=== PATIENT | female | born 1945 | race American Indian/Alaskan Native ===

== ENCOUNTER 2019-12-21 01:20 | Emergency (ER) | payer MEDICARE ==
--- NOTE | 2019-12-21 03:55 | XRay Report ---
CHEST PA AND LATERAL VIEWS INDICATION: cough. COMPARISON: None. FINDINGS: Support devices: None. Heart: Within normal limits. Lungs/Pleura: There are low lung volumes which accentuates pulmonary interstitium. No consolidation, effusion, or pneumothorax. IMPRESSION: 1. Mild diffuse interstitial markings may be due at least in part due to low lung volumes. No consoli dation is seen. It would be difficult to exclude lower airways disease. Signer Name: Real Rosenberg MD Signed: 12/21/2019 3:50 AM Workstation Name: [id number]
[2019-12-21] MEDS ORDERED: ACETAMINOPHEN 325 MG TAB PO ONE (04:05)
[2019-12-21] MEDS ORDERED: ACETAMINOPHEN 325 MG TAB ONE (04:06)
--- NOTE | 2019-12-21 06:38 | Emergency Department Report ---
ED General Adult HPI - General Chief complaint: Upper Respiratory Infection Stated complaint: COUGH Time Seen by Provider: 12/21/19 06:22 Source: patient, EMS Mode of arrival: Ambulatory Limitations: No Limitations - History of Present Illness Initial comments: This is a 74-year-old lady who is quite irate on my encounter. She states she has been here all night and "nothing has been done". She states that she was brought here against her will by EMS because "my numbers were too high". She has had a chest x-ray performed during the evening but no laboratory database. The patient tells me that she has been coughing and "it makes my chest sore". She does not complain of any independent chest pain. She states that she has difficulty in breathing. She states that she has been prescribed oxygen at home in the past but does not state that she is using it currently. She has a history of COPD. She was recently prescribed prednisone. She states she has been on "a lot of antibiotics". She denies any history of congestive heart failure or renal insufficiency. She states that she does see a senior designer/art director Dr. Yu and has an appointment this week. She is currently on a blood thinner but does not tell me that it was prescribed related to blood clots. She is apparently diabetic with a history of COPD and hypertension. There is no me dicine reconciliation. She does not know her medicines well. She is not inclined to answer many of my questions. She is repeatedly asking to leave. -: Gradual, days(s), week(s) Location: chest (On cough) Radiation: non-radiation Severity scale (0 -10): 5 Quality: aching Consistency: intermittent Improves with: none Worsens with: none Associated Symptoms: chest pain, cough, other. denies: fever/chills - Related Data Allergies Allergy/AdvReac Type Severity Reaction Status Date / Time No Known Allergies Allergy Unverified 12/21/19 03:23 ED Review of Systems ROS: Stated complaint: COUGH Other details as noted in HPI Constitutional: denies: chills, fever Eyes: denies: eye pain, eye discharge, vision change ENT: denies: ear pain, throat pain Respiratory: cough (Nonproductive), shortness of breath Cardiovascular: chest pain. denies: palpitations Endocrine: no symptoms reported Gastrointestinal: denies: abdominal pain, nausea, diarrhea Genitourinary: denies: urgency, dysuria, discharge Musculoskeletal: as per HPI, other (Chronic left leg swelling). denies: back pain Skin: denies: rash, lesions Neurological: denies: headache, weakness, paresthesias Psychiatric: denies: anxiety, depression Hematological/Lymphatic: denies: easy bleeding, easy bruising ED Past Medical Hx - Past Medical History Previous Medical History?: Yes Hx Hypertension: Yes Hx Diabetes: Yes Hx Asthma: Yes Hx COPD: Yes Additional medical history: Bronchitis - Surgical History Past Surgical History?: Yes Additional Surgical History: Bilateral Knee replacement - Social History Smoking Status: Former Smoker Substance Use Type: None ED Physical Exam - General Limitations: No Limitations, Physical Limitation, Other General appearance: alert, in no apparent distress - Head Head exam: Present: atraumatic, normocephalic - Eye Eye exam: Present: normal appearance. Absent: scleral icterus - ENT ENT exam: Present: mucous membranes moist - Neck Neck exam: Present: normal inspection. Absent: meningismus - Respiratory Respiratory exam: Present: decreased breath sounds (Perhaps slightly), other (Speaking in full sentences without distress). Absent: respiratory distress, wheezes, rales, rhonchi, accessory muscle use - Cardiovascular Cardiovascular Exam: Present: regular rate, normal rhythm. Absent: systolic murmur, diastolic murmur, rubs, gallop - GI/Abdominal GI/Abdominal exam: Present: soft, normal bowel sounds. Absent: distended, tenderness, guarding, rebound, rigid - Extremities Exam Extremities exam: Present: other (Knee replacement surgery scar. There is asymmetrical leg edema. Is not pitting. There is no calf tenderness. There is no signs of neurovascular compromise.) - Back Exam Back exam: Present: normal inspection - Neurological Exam Neurological exam: Present: alert, oriented X3 - Psychiatric Psychiatric exam: Present: agitated, anxious, other (Mentally competent) - Skin Skin exam: Present: warm, dry, intact, normal color. Absent: rash ED Course Vital Signs 12/21/19 12/21/19 01:25 04:35 Temperature 98.7 F 97.9 F Pulse Rate 95 H 79 Respiratory 18 17 Rate Blood Pressure 150/92 Blood Pressure 165/84 [Left] O2 Sat by Pulse 95 99 Oximetry - Reevaluation(s) Reevaluation #1: Patient's chest x-ray shows hypoinflation. There are increased markings but interpretation is rather difficult. Acute process is not suggested but cannot be excluded. I agree with the radiologist. I have explained to the patient that she may have a variety of serious problems from congestive heart failure to VTE. She is not receptive to further work-up. I have apologized for the wait which was beyond my shift hours. Not withstanding the patient is indicating that she does not want any further work- up at this time. She is mentally competent. At this time I cannot persuade the patient to stay for further work-up. She will be signing out AGAINST MEDICAL ADVICE. 12/21/19 06:41 ED Medical Decision Making - Radiology Data Radiology results: report reviewed Critical care attestation.: If time is entered above; I have spent that time in minutes in the direct care of this critically ill patient, excluding procedure time. ED Disposition Clinical Impression: Dyspnea Qualifiers: Dyspnea type: unspecified Qualified Code(s): R06.00 - Dyspnea, unspecified Disposition: DC-07 LEFT AGAINST MED ADVICE Is pt being admited?: No Does the pt Need Aspirin: No Condition: Stable Instructions: Dyspnea (ED) Additional Instructions: I would strongly recommend that you remain for further testing. I cannot exclude a life-threatening illness such as congestive heart failure or blood clots in the lung or leg. These can lead to if they are untreated. You are signing out AGAINST MEDICAL ADVICE. I strongly recommend that you seek further medical evaluation as soon as possible. Forms: AMA Form Time of Disposition: 06:44
[2019-12-21 07:02] VITALS: BP 156/81
== END 2019-12-21 07:03 | disposition left against medical advice (07) ==
LOC: ED 01:20
DX: R06.00 Dyspnea, unspecified (principal); J44.0 Chronic obstructive pulmonary disease with (acute) lower respiratory infection; E11.9 Type 2 diabetes mellitus without complications; I10 Essential (primary) hypertension; Z96.653 Presence of artificial knee joint, bilateral; Z87.891 Personal history of nicotine dependence
CPT/HCPCS: 71046